=== PATIENT | male | born 1940 | race Caucasian/White ===

== ENCOUNTER 2016-11-02 08:50 | Outpatient (CLI) | payer MEDICARE, OTHER ==
[2016-11-02 09:36] LABS: eGFR (African) > 60; eGFR (Non-African) 57
== END 2016-11-02 08:52 ==
LOC: LAB 08:50
PROVIDERS: ATTEND Family Medicine
DX: E11.40 Type 2 diabetes mellitus with diabetic neuropathy, unspecified (principal); I48.91 Unspecified atrial fibrillation; Z79.01 Long term (current) use of anticoagulants
CPT/HCPCS: 36415; 80053; 80061; 82043; 83036; 85610

== ENCOUNTER 2016-11-25 07:47 | Outpatient (CLI) | payer MEDICARE, OTHER | END 2016-11-25 07:50 | LOC: LAB 07:47 | PROVIDERS: ATTEND Family Medicine | DX: I48.91 Unspecified atrial fibrillation (principal); Z79.01 Long term (current) use of anticoagulants | CPT/HCPCS: 36415; 85610 ==

== ENCOUNTER 2017-03-18 12:50 | Outpatient (CLI) | payer MEDICARE, OTHER | END 2017-03-18 12:52 | LOC: CARD 12:50 | PROVIDERS: ATTEND Internal Medicine Cardiovascular Disease | DX: I48.2 Chronic atrial fibrillation (principal); I25.10 Atherosclerotic heart disease of native coronary artery without angina pectoris; R07.89 Other chest pain; E11.9 Type 2 diabetes mellitus without complications; I10 Essential (primary) hypertension; E78.5 Hyperlipidemia, unspecified | CPT/HCPCS: G0463 ==

== ENCOUNTER 2017-04-22 10:09 | Outpatient (CLI) | payer MEDICARE, OTHER | END 2017-04-22 10:10 | LOC: CARD 10:09 | PROVIDERS: ATTEND Internal Medicine Cardiovascular Disease | DX: I48.91 Unspecified atrial fibrillation (principal); I25.10 Atherosclerotic heart disease of native coronary artery without angina pectoris; I42.9 Cardiomyopathy, unspecified; Z95.0 Presence of cardiac pacemaker; E11.9 Type 2 diabetes mellitus without complications; I10 Essential (primary) hypertension; E78.5 Hyperlipidemia, unspecified; G47.30 Sleep apnea, unspecified | CPT/HCPCS: G0463 ==

== ENCOUNTER 2017-05-12 14:02 | Outpatient (CLI) | payer MEDICARE, OTHER ==
[2017-05-12 15:16] LABS: eGFR (African) > 60; eGFR (Non-African) > 60
== END 2017-05-12 14:03 ==
LOC: LAB 14:02
PROVIDERS: ATTEND Family Medicine
DX: E11.65 Type 2 diabetes mellitus with hyperglycemia (principal); Z79.4 Long term (current) use of insulin; R25.2 Cramp and spasm
CPT/HCPCS: 36415; 80053; 83036; 83735

== ENCOUNTER 2018-06-01 13:12 | Outpatient (CLI) | payer MEDICARE, OTHER ==
[2018-06-01 14:52] LABS: eGFR (Non-African) 48
== END 2018-06-01 13:13 ==
LOC: LAB 13:12
PROVIDERS: ATTEND Family Medicine
DX: E11.65 Type 2 diabetes mellitus with hyperglycemia (principal); Z79.4 Long term (current) use of insulin
CPT/HCPCS: 36415; 80053; 80061; 82043; 83036

== ENCOUNTER 2018-10-06 09:52 | Outpatient (CLI) | payer MEDICARE, OTHER ==
--- NOTE | 2018-10-06 14:54 | Diagnostic Imaging Report ---
BIJU SCANLON [facility] [id number] [facility].[address] [id number] Report Submission Date: Oct 06, 2018 2:35:16 PM CDT Patient Study Name: KEITH MUNROE Date: Oct 06, 2018 10:00:34 AM CDT Modality Type: US\OT Gender: M Description: US RAYNA 3+ BILAT COMPLETE : 42 Institution: [facility] Physician: BIJU SCANLON Examination: Ultrasound arterial History: Bilateral leg pain Comparison exams: None available Findings: Sonographic evaluation of the lower extremity arterial system from the groin to the distal extremities bilaterally demonstrates diminished waveforms. Right ankle/brachial index of 0.63. Left ankle/brachial index of 0.62 Impression: Diminished ABIs bilaterally indicating reduction to hemodynamic flow. Consider distal extremity runoff examination to better evaluate. Electronically signed on Oct 06, 2018 2:35:16 PM CDT by: Nahid MARLOW
== END 2018-10-06 09:54 ==
LOC: RAD 09:52
PROVIDERS: ATTEND Family Medicine
DX: M79.604 Pain in right leg (principal); M79.605 Pain in left leg
CPT/HCPCS: 93923

== ENCOUNTER 2018-10-19 09:56 | Outpatient (CLI) | payer MEDICARE, OTHER ==
[2018-10-19] MEDS ORDERED: ALBUTEROL SULFATE 2.5 MG/3 ML AMPUL.NEB NEB ONE (10:11)
== END 2018-10-19 09:58 ==
LOC: RT 09:56
PROVIDERS: ATTEND Family Medicine
DX: J43.1 Panlobular emphysema (principal)
CPT/HCPCS: 94060